=== PATIENT | female | born 1990 | race African-American/Black ===

== ENCOUNTER 2016-11-13 08:50 | Emergency (ER) | payer MEDICAID ==
[~2016-11-13] VITALS: Ht 152.4 cm; Wt 65.0 kg
[2016-11-13 09:55] VITALS: BP 115/76
== END 2016-11-13 11:02 | disposition home or self-care (01) ==
LOC: ER 10:58
DX: B34.9 Viral infection, unspecified (principal)
CPT/HCPCS: 99283

== ENCOUNTER 2017-02-06 09:09 | Emergency (ER) | payer MEDICAID ==
[~2017-02-06] VITALS: Ht 162.6 cm; Wt 45.0 kg
[2017-02-06] MEDS ORDERED: UNKNOWN ABX (09:25)
[2017-02-06 09:49] VITALS: BP 117/68
[2017-02-06] MEDS ORDERED: BACITRACIN ZINC OINT UDPKT TOP ONE (11:15)
== END 2017-02-06 11:20 | disposition home or self-care (01) ==
LOC: ER 09:44
DX: L02.828 Furuncle of other sites (principal)
CPT/HCPCS: 10060; 99283

== ENCOUNTER 2020-11-20 10:09 | Emergency (ER) | payer MEDICAID ==
[~2020-11-20] VITALS: Ht 162.6 cm; Wt 45.0 kg
[~2020-11-20 10:09] MED LIST: UNKNOWN ABX
[2020-11-20 10:30] VITALS: BP 120/73
[2020-11-20] MEDS ORDERED: CEPH500C2 MT (13:40)
[2020-11-20] MEDS ORDERED: DOXY100C2 MT (13:40)
[2020-11-20] MEDS ORDERED: FLUC150T5 MT (13:40)
== END 2020-11-20 14:05 | disposition home or self-care (01) ==
LOC: ER 10:09
DX: L02.414 Cutaneous abscess of left upper limb (principal); L03.114 Cellulitis of left upper limb; L72.3 Sebaceous cyst
CPT/HCPCS: 99283

== ENCOUNTER 2020-11-27 10:32 | Emergency (ER) | payer MEDICAID ==
[~2020-11-27] VITALS: Ht 162.6 cm; Wt 45.0 kg
[~2020-11-27 10:32] MED LIST changes: +CEPH500C2 MT; +DOXY100C2 MT; +FLUC150T5 MT
[2020-11-27 10:55] VITALS: BP 100/61
== END 2020-11-27 10:55 | disposition home or self-care (01) ==
LOC: ER 10:42
DX: Z48.00 Encounter for change or removal of nonsurgical wound dressing (principal)
CPT/HCPCS: 99281

== ENCOUNTER 2021-04-27 08:01 | Emergency (ER) | payer MEDICAID, OTHER ==
[~2021-04-27] VITALS: Ht 162.6 cm; Wt 46.0 kg
[~2021-04-27 08:01] MED LIST changes: -DOXY100C2 MT; +DOXY100C5 MT
[2021-04-27] MEDS ORDERED: KETOROLAC 30MG/ML VIAL IV STA (08:17)
[2021-04-27] MEDS ORDERED: SODIUM CHLORIDE 0.9% 1,000 ML IV ONE (08:30)
[2021-04-27 08:40] LABS: BASOPHILS % 0.4 % (0.0-2.0); EOSINOPHILS % 0.7 % (0.0-5.0); HEMATOCRIT. 39.7 % (36.0-48.0); HEMOGLOBIN. 12.6 g/dL (12.0-16.0); LYMPHOCYTES % 22.4 % (20.0-50.0); MEAN CORPUSCULAR HEMOGLOBIN 24.7 pg (28.0-32.0); MEAN CORPUSCULAR VOLUME 77.9 fL (81.0-99.0); MEAN PLATELET VOLUME 7.9 fl (7.4-10.4); MONOCYTES % 8.5 % (2.0-8.0); PLATELET 224 x1000/uL (130-400); RED CELL DISTRIBUTION WIDTH 14.1 % (11.6-14.6)
[2021-04-27 08:54] LABS: CHLORIDE 108 mEq/L (98-107)
[2021-04-27] MEDS ORDERED: IOHEXOL-300 100 ML BOTTLE ONE (10:35)
[2021-04-27] MEDS ORDERED: IBUP-2029 MT (11:16)
[2021-04-27 11:40] VITALS: BP 113/71
== END 2021-04-27 11:40 | disposition home or self-care (01) ==
LOC: ER 08:01
DX: K11.20 Sialoadenitis, unspecified (principal)
CPT/HCPCS: 36415; 70487; 80048; 81025; 85025; 96374; 99285; J1885; J7030; Q9967

== ENCOUNTER 2025-04-06 06:29 | Emergency (ER) | payer MEDICAID ==
[~2025-04-06] VITALS: Ht 162.6 cm; Wt 45.3 kg
[~2025-04-06 06:29] MED LIST changes: +FLUC150T46 MT; -FLUC150T5 MT; +IBUP-1455 MT
[2025-04-06 06:31] VITALS: O2SAT 100
[2025-04-06 06:32] VITALS: TEMP 36.5; O2SAT 100
[2025-04-06] MEDS ORDERED: TOPUD PO (07:43)
[2025-04-06 07:58] VITALS: BP 113/80; PULSE 101; RESP 16
[2025-04-06] MEDS: KETOROLAC 15MG/ML VIAL IM ONE (07:58)
[2025-04-06] MEDS: ACETAMINOPHEN WITH CODEINE 300/30MG TABLET PO ONE (07:58)
== END 2025-04-06 08:10 | disposition home or self-care (01) ==
LOC: ER 06:29
DX: M54.50 Low back pain, unspecified (principal); Z79.899 Other long term (current) drug therapy
CPT/HCPCS: 96372; 99283; J1885; Z7610